=== PATIENT | male | born 1965 | race African-American/Black ===

== ENCOUNTER 2016-03-21 21:18 | Emergency (ER) | payer SELFPAY ==
[~2016-03-21] VITALS: Ht 175.3 cm; Wt 102.1 kg
[2016-03-21 21:44] VITALS: BP 143/86
[2016-03-21] MEDS ORDERED: TDAP [DIPH/PERTUSSIS/TET] 0.5 ML VIAL IM ONE ×2 (22:00→23:11)
== END 2016-03-21 22:38 | disposition home or self-care (01) ==
LOC: ER 21:25
DX: S81.011A Laceration without foreign body, right knee, initial encounter (principal); F17.200 Nicotine dependence, unspecified, uncomplicated; W22.8XXA Striking against or struck by other objects, initial encounter; Y93.89 Activity, other specified; Y92.89 Other specified places as the place of occurrence of the external cause; Y99.9 Unspecified external cause status
CPT/HCPCS: 90471; 90715; 99283; A4606; Z7610